=== PATIENT | female | born 1990 | race African-American/Black ===

== ENCOUNTER 2018-08-10 21:25 | Emergency (ER) | payer OTHER ==
[~2018-08-10] VITALS: Ht 160 cm; Wt 54.4 kg
[2018-08-10 22:37] LABS: BILIRUBIN,URINE NEGATIVE (NEG); CLARITY,URINE CLEAR; COLOR,URINE YELLOW; NITRITE,URINE NEGATIVE (NEG); PROTEIN,URINE NEGATIVE (NEG-TRACE)
[2018-08-10 22:44] LABS: RBC,URINE OCC /HPF (0-2)
[2018-08-10 22:45] LABS: BACTERIA,URINE FEW /HPF (0-FEW); SQUAMOUS EPITHELIAL CELL,UR FEW /LPF
[2018-08-10] MEDS ORDERED: CEPH-264 PO (23:04)
--- NOTE | 2018-08-10 23:04 | PHYS DOC ---
Past Medical History Past Medical History: UTI, Other Additional Past Medical Histor: "CHRONIC INFLAMMATION OF CHEST" Past Surgical History: No Surgical History Alcohol Use: None Drug Use: None Adult General Chief Complaint Chief Complaint: PAIN ON URINATION [facility] HPI Patient is a 27 year old female who presents with sharp pain in her lower abdomen and at her urethra after she finishes her urinating stream. Patient states that this morning she saw blood when she wiped. This been going on for 2- 3 days. Patient states. Patient denies nausea, vomiting, fever, back pain. She takes no medications daily has no known drug allergies. Review of Systems Review of Systems Constitutional: Denies fever or chills [] Eyes: Denies change in visual acuity, redness, or eye pain [] HENT: Denies nasal congestion or sore throat [] Respiratory: Denies cough or shortness of breath [] Cardiovascular: No additional information not addressed in HPI [] GI: Denies abdominal pain, nausea, vomiting, bloody stools or diarrhea [] : Dysuria and hematuria [] Musculoskeletal: Denies back pain or joint pain [] All other systems were reviewed and found to be within normal limits, except as documented in this note. Allergies Allergies Allergies Coded Allergies Type Severity Reaction Last Updated Verified No Known Drug Allergies 08/10/18 No Physical Exam Physical Exam Constitutional: Well developed, well nourished, no acute distress, non-toxic appearance. [] HENT: Normocephalic, atraumatic, bilateral external ears normal, oropharynx moist, no oral exudates, nose normal. [] Eyes: PERRLA, EOMI, conjunctiva normal, no discharge. [] Neck: Normal range of motion, no tenderness, supple, no stridor. [] Cardiovascular:Heart rate regular rhythm, no murmur [] Lungs & Thorax: Bilateral breath sounds clear to auscultation [] Abdomen: Bowel sounds normal, soft, no tenderness, no masses, no pulsatile masses. [] Skin: Warm, dry, no erythema, no rash. [] Back: No tenderness, no CVA tenderness. [] Extremities: No tenderness, no cyanosis, no clubbing, ROM intact, no edema. [] Neurologic: Alert and oriented X 3, normal motor function, normal sensory function, no focal deficits noted. [] Psychologic: Affect normal, judgement normal, mood normal. [] Current Patient Data Lab Values Laboratory Tests Test 08/10/18 21:27 08/10/18 22:25 Urine Collection Type Unknown Urine Color Yellow Urine Clarity Clear Urine pH 7.0 Urine Specific [place] >=1.030 Urine Protein Negative mg/dL (NEG-TRACE) Urine Glucose (UA) Negative mg/dL (NEG) Urine Ketones (Stick) Negative mg/dL (NEG) Urine Blood Small (NEG) Urine Nitrite Negative (NEG) Urine Bilirubin Negative (NEG) Urine Urobilinogen Dipstick 1.0 mg/dL (0.2 mg/dL) Urine Leukocyte Esterase Small (NEG) Urine RBC Occ /HPF (0-2) Urine WBC 5-10 /HPF (0-4) Urine Squamous Epithelial Cells Few /LPF Urine Bacteria Few /HPF (0-FEW) Urine Mucus Slight /LPF POC Urine HCG, Qualitative Hcg negative (Negative) EKG EKG [] Radiology/Procedures Radiology/Procedures [] Course & Med Decision Making Course & Med Decision Making Patient is a 27 year old female who presents with sharp pain in her lower abdomen and at her urethra after she finishes her urinating stream. Patient states that this morning she saw blood when she wiped. This been going on for 2- 3 days. Patient states. Patient denies nausea, vomiting, fever, back pain. She takes no medications daily has no known drug allergies. Abdomen is soft and nontender. Afebrile. Patient denies any abnormal vaginal discharge. Patient's urine shows signs of early infection. She'll be put on a antibiotic and follow up with her primary care. Dragon Disclaimer Dragon Disclaimer This electronic medical record was generated, in whole or in part, using a voice recognition dictation system. Departure Departure Impression: Primary Impression: Urinary tract infection Disposition: HOME, SELF-CARE Condition: STABLE Referrals: NO PCP (PCP) Patient Instructions: Urinary Tract Infection Additional Instructions: Follow up with your primary care. Take medications as prescribed. Scripts Cephalexin (KEFLEX) 500 Mg Capsule 1 CAP PO BID, #14 CAP Prov: NGUYỄN RIVERA Susan [employer] C[employer] MERCHANDISER LEAD 08/10/18 Attending Signature Attending Signature I have reviewed the PA/CANOE MAKER's note and plan of care. I was available for consultation as needed during the patient's visit in the emergency department. I agree with the clinical impression, plan, and disposition. Problem Qualifiers Primary Impression: Urinary tract infection Urinary tract infection type: site unspecified Hematuria presence: with hematuria Qualified Codes: N39.0 - Urinary tract infection, site not specified ; R31.9 - Hematuria, unspecified NGUYỄN RIVERA APRN Aug 10, 2018 23:04 MARIE LIN DO Aug 11, 2018 02:19
== END 2018-08-10 23:10 | disposition home or self-care (01) ==
LOC: ER 21:25
DX: N39.0 Urinary tract infection, site not specified (principal); R31.9 Hematuria, unspecified; Z87.440 Personal history of urinary (tract) infections
CPT/HCPCS: 81001; 81025; 87086; 99283

== ENCOUNTER 2019-01-05 11:56 | Emergency (ER) | payer OTHER ==
[~2019-01-05] VITALS: Ht 160 cm; Wt 49.9 kg
[~2019-01-05 11:56] MED LIST: CEPH-264 PO
[2019-01-05 12:28] VITALS: BP 110/73
--- NOTE | 2019-01-05 14:18 | PHYS DOC ---
Past Medical History Past Medical History: UTI, Other Additional Past Medical Histor: "CHRONIC INFLAMMATION OF CHEST" Past Surgical History: No Surgical History Alcohol Use: None Drug Use: None Adult General Chief Complaint Chief Complaint: EARACHE/EAR PAIN HPI HPI 28-year-old female presents to ER via POV with complaints of right ear pain which started on Thursday. Patient denies any other symptoms however does state her hearing is muffled in her right ear. She denies any injury or trauma. She has been using [id number] eardrops for pain as directed on container. He shouldn't denies any dizziness, headache, or nausea and vomiting. Denies smoking hx. Review of Systems Review of Systems Constitutional: Denies fever or chills [] Eyes: Denies change in visual acuity, redness, or eye pain [] HENT: Denies nasal congestion or sore throat. Reports rt ear pain with muffled hearing Respiratory: Denies cough or shortness of breath [] Cardiovascular: No additional information not addressed in HPI [] GI: Denies abdominal pain, nausea, vomiting, bloody stools or diarrhea [] Musculoskeletal: Denies back/neck pain or joint pain [] Integument: Denies rash or skin lesions [] Neurologic: Denies headache, focal weakness or sensory changes. Denies dizziness All other systems were reviewed and found to be within normal limits, except as documented in this note. Allergies Allergies Allergies Coded Allergies Type Severity Reaction Last Updated Verified No Known Drug Allergies 08/10/18 No Physical Exam Physical Exam Constitutional: Well developed, well nourished, no acute distress, non-toxic appearance. [] HENT: Normocephalic, atraumatic, lt ear exam NL- rt ear excessive wax in inner canal unable to visualize TM; bilat. external canal NL; oropharynx moist- no pharyngeal swelling/erythema, no oral exudates, nose normal. [] Eyes: Pupils equal, conjunctiva normal, no discharge. [] Neck: Normal range of motion, no tenderness, supple, no stridor. [] Cardiovascular: Heart rate regular Lungs & Thorax: Resp. equal/nonlabored Skin: Warm, dry, no erythema, no rash. [] Extremities: ROM intact, no edema. [] Neurologic: Alert and oriented X 3, normal motor function, normal sensory function, no focal deficits noted. [] Psychologic: Affect normal, judgement normal, mood normal. [] Current Patient Data Vital Signs Vital Signs Date Time Temp Pulse Resp B/P (MAP) Pulse Ox O2 Delivery O2 Flow Rate FiO2 01/05/19 12:28 98.3 83 16 110/73 (85) 99 Room Air 98.3 EKG EKG [] Radiology/Procedures Radiology/Procedures [] Course & Med Decision Making Course & Med Decision Making Pt was evaluated in the ER for complaints of right earache and muffled hearing. On exam she had excessive earwax in her ear canal which was irrigated and per RN easily removed. Reexam patient had no bulging or perforation at TM or purulence and inner canal. External canal was normal limits. Patient states she is still having some discomfort offered dose of Tylenol or ibuprofen and patient preferred no medications. Patient was advised on avoiding any Q-tip use or insertion of anything into ear and if symptoms persist follow-up advised with ENT and/or primary care physician. Patient was afebrile and in no distress while in the ER. [] Dragon Disclaimer Dragon Disclaimer This electronic medical record was generated, in whole or in part, using a voice recognition dictation system. Departure Departure Impression: Primary Impression: Excessive ear wax Disposition: 01 HOME, SELF-CARE Condition: STABLE Referrals: NO PCP (PCP) Patient Instructions: Otalgia Additional Instructions: You were found to have excessive wax in your right ear- once irrigated the wax was removed and your tympanic membrane was visualized. There was no signs of infection or perforation of the membrane. Ibuprofen and/or tylenol as needed for pain as directed on container. Warm compress to right ear as needed. Avoid insertion of objects into the ear. If symptoms persist follow-up with your doctor or an Ear, Nose and Throat doctor (ENT) for re-evaluation and further care JE SANDRA APRN Jan 05, 2019 14:18
== END 2019-01-05 14:21 | disposition home or self-care (01) ==
LOC: ER 11:56
DX: H61.21 Impacted cerumen, right ear (principal)
CPT/HCPCS: 69209; 99282

== ENCOUNTER 2019-05-06 09:12 | Emergency (ER) | payer OTHER ==
[~2019-05-06] VITALS: Ht 160 cm; Wt 52.2 kg
[2019-05-06 09:27] LABS: BILIRUBIN,URINE NEGATIVE (NEG); CLARITY,URINE CLEAR; COLOR,URINE YELLOW; NITRITE,URINE POSITIVE (NEG); PROTEIN,URINE 30 mg/dL (NEG-TRACE); UROBILINOGEN,URINE 0.2 mg/dL (0.2 mg/dL)
--- NOTE | 2019-05-06 09:28 | PHYS DOC ---
Past Medical History Past Medical History: UTI, Other Additional Past Medical Histor: "CHRONIC INFLAMMATION OF CHEST" (CHARLES ANDRADE APRN) Past Surgical History: No Surgical History (CHARLES ANDRADE APRN) Alcohol Use: None Drug Use: None (CHARLES ANDRADE APRN) Adult General Chief Complaint Chief Complaint: PAIN ON URINATION [facility] Patient is a 28 year old female with no significant medical history who pr esents to the ED today complaining of dysuria that began this morning. Patient denies any fever, nausea, vomiting. Denies any chance she is . Denies any concerns for STDs. (CHARLES ANDRADE APRN) Review of Systems Review of Systems Constitutional: Denies fever or chills [] Eyes: Denies change in visual acuity, redness, or eye pain [] HENT: Denies nasal congestion or sore throat [] Respiratory: Denies cough or shortness of breath [] Cardiovascular: No additional information not addressed in HPI [] GI: Denies abdominal pain, nausea, vomiting, bloody stools or diarrhea [] : Reports dysuria, denies hematuria [] Musculoskeletal: Denies back pain or joint pain [] Integument: Denies rash or skin lesions [] Neurologic: Denies headache, focal weakness or sensory changes [] All other systems were reviewed and found to be within normal limits, except as documented in this note. (CHARLES ANDRADE APRN) Allergies Allergies Allergies Coded Allergies Type Severity Reaction Last Updated Verified No Known Drug Allergies 08/10/18 No (MARIE LIN DO) Physical Exam Physical Exam Constitutional: Well developed, well nourished, no acute distress, non-toxic appearance. [] HENT: Normocephalic, atraumatic, bilateral external ears normal, oropharynx moist, no oral exudates, nose normal. [] Eyes: PERRLA, EOMI, conjunctiva normal, no discharge. [] Neck: Normal range of motion, no tenderness, supple, no stridor. [] Cardiovascular:Heart rate regular rhythm, no murmur [] Lungs & Thorax: Bilateral breath sounds clear to auscultation [] Abdomen: Bowel sounds normal, soft, no tenderness, no masses, no pulsatile masses. [] Skin: Warm, dry, no erythema, no rash. [] Back: No tenderness, no CVA tenderness. [] Extremities: No tenderness, no cyanosis, no clubbing, ROM intact, no edema. [] Neurologic: Alert and oriented X 3, normal motor function, normal sensory function, no focal deficits noted. [] Psychologic: Affect normal, judgement normal, mood normal. [] (CHARLES ANDRADE APRN) Current Patient Data Vital Signs Vital Signs Date Time Temp Pulse Resp B/P (MAP) Pulse Ox O2 Delivery O2 Flow Rate FiO2 05/06/19 09:31 98.4 76 17 110/80 (90) 100 Room Air 98.4 ([employer] [facility]) Lab Values Laboratory Tests Test 05/06/19 09:20 Urine Collection Type Unknown Urine Color Yellow Urine Clarity Clear Urine pH 6.0 Urine Specific [place] 1.020 Urine Protein 30 mg/dL (NEG-TRACE) Urine Glucose (UA) Negative mg/dL (NEG) Urine Ketones (Stick) 40 mg/dL (NEG) Urine Blood Large (NEG) Urine Nitrite Positive (NEG) Urine Bilirubin Negative (NEG) Urine Urobilinogen Dipstick 0.2 mg/dL (0.2 mg/dL) Urine Leukocyte Esterase Large (NEG) Urine RBC Fobs /HPF (0-2) Urine WBC Tntc /HPF (0-4) Urine Squamous Epithelial Cells Mod /LPF Urine Bacteria Mod /HPF (0-FEW) Urine Mucus Mod /LPF ([facility] Lab Values Laboratory Tests Test 05/06/19 09:20 Urine Collection Type Unknown Urine Color Yellow Urine Clarity Clear Urine pH 6.0 Urine Specific [place] 1.020 Urine Protein 30 mg/dL (NEG-TRACE) Urine Glucose (UA) Negative mg/dL (NEG) Urine Ketones (Stick) 40 mg/dL (NEG) Urine Blood Large (NEG) Urine Nitrite Positive (NEG) Urine Bilirubin Negative (NEG) Urine Urobilinogen Dipstick 0.2 mg/dL (0.2 mg/dL) Urine Leukocyte Esterase Large (NEG) Urine RBC Fobs /HPF (0-2) Urine WBC Tntc /HPF (0-4) Urine Squamous Epithelial Cells Mod /LPF Urine Bacteria Mod /HPF (0-FEW) Urine Mucus Mod /LPF (CHARLES ANDRADE JUNIOR BOOKKEEPER) EKG EKG [] (CHARLES ANDRADE APRN) Radiology/Procedures Radiology/Procedures [] (CHARLES ANDRADE APRN) Course & Med Decision Making Course & Med Decision Making Pertinent Labs and Imaging studies reviewed. (See chart for details) This is a 28-year-old female patient presenting to the ED today with dysuria that began this morning. Positive for UTI. Patient was discharged on cephalexin. Follow-up with PCP in one to 2 weeks. OTC pain relievers. Instructed to push fluids (CHARLES ANDRADE APRN) Dragon Disclaimer Dragon Disclaimer This electronic medical record was generated, in whole or in part, using a voice recognition dictation system. (CHARLES ANDRADE APRN) Departure Departure Impression: Primary Impression: Urinary tract infection Disposition: HOME, SELF-CARE Condition: STABLE Referrals: NO PCP (PCP) follow up with your doctor in 2 weeks Patient Instructions: Urinary Tract Infection Additional Instructions: You have urinary tract infection. We put you on antibiotics, ensure you complete them. Take Tylenol/Motrin for pain or fever. Push fluids. We wrote a presc ription for Pyridium. Take it as prescribed. Come back to the ED at any point symptoms worsen. Scripts Cephalexin (CEPHALEXIN) 500 Mg Capsule 1 CAP PO BID, #14 CAP Prov: CHARLES ANDRADE APRN 05/06/19 Phenazopyridine Hcl (PYRIDIUM) 100 Mg Tablet 100 MG PO TID, #9 TAB Prov: CHARLES ANDRADE APRN 05/06/19 Attending Signature Attending Signature I have reviewed the PA/TICKET PRINTER AND TAGGER's note and plan of care. I was available for consultation as needed during the patient's visit in the emergency department. I agree with the clinical impression, plan, and disposition. (MARIE LIN DO) Problem Qualifiers Primary Impression: Urinary tract infection Urinary tract infection type: site unspecified Hematuria presence: without hematuria Qualified Codes: N39.0 - Urinary tract infection, site not specified CHARLES ANDRADE APRN May 06, 2019 09:28 MARIE LIN DO May 06, 2019 17:17
[2019-05-06 09:31] VITALS: BP 110/80
[2019-05-06 09:33] LABS: RBC,URINE FOBS /HPF (0-2)
[2019-05-06 09:34] LABS: BACTERIA,URINE MOD /HPF (0-FEW); SQUAMOUS EPITHELIAL CELL,UR MOD /LPF; WBC,URINE TNTC /HPF (0-4)
[2019-05-06] MEDS ORDERED: PHEN100T82 PO (09:41)
[2019-05-06] MEDS ORDERED: CEPH500C PO (09:41)
== END 2019-05-06 09:48 | disposition home or self-care (01) ==
LOC: ER 09:12
DX: N39.0 Urinary tract infection, site not specified (principal)
CPT/HCPCS: 81001; 99283

== ENCOUNTER 2019-09-01 15:19 | Emergency (ER) | payer OTHER ==
[~2019-09-01] VITALS: Ht 160 cm; Wt 47.6 kg
[~2019-09-01 15:19] MED LIST changes: +CEPH500C PO; +PHEN100T82 PO
[2019-09-01 15:28] VITALS: BP 145/86
[2019-09-01] MEDS ORDERED: NAPR-514 PO (15:54)
[2019-09-01] MEDS ORDERED: CYCL10TA2 PO (15:54)
--- NOTE | 2019-09-01 15:54 | PHYS DOC ---
Past Medical History Past Medical History: No Pertinent History, UTI, Other Additional Past Medical Histor: "CHRONIC INFLAMMATION OF CHEST" Past Surgical History: No Surgical History Alcohol Use: None Drug Use: None Adult General Chief Complaint Chief Complaint: BACK PAIN - NO INJURY HPI HPI Patient is a 28 year old female who presents to the ED today complaining of mild mid upper back pain that began 3 days ago. Patient states the pain is worse when she lays in certain positions. Denies any injury. Denies any numbness or tingling to bilateral upper and lower extremities. She states immobilization relieves the pain. Review of Systems Review of Systems Constitutional: Denies fever or chills [] Musculoskeletal: Mid back pain Integument: Denies rash or skin lesions [] Neurologic: Denies headache, focal weakness or sensory changes [] All other systems were reviewed and found to be within normal limits, except as documented in this note. Allergies Allergies Allergies Coded Allergies Type Severity Reaction Last Updated Verified No Known Drug Allergies 08/10/18 No Physical Exam Physical Exam Constitutional: Well developed, well nourished, no acute distress, non-toxic appearance. [] Neck: Normal range of motion, no tenderness, supple, no stridor. [] Cardiovascular:Heart rate regular rhythm, no murmur [] Skin: Warm, dry, no erythema, no rash. [] Back: No tenderness, no CVA tenderness. [] Extremities: No tenderness, no cyanosis, no clubbing, ROM intact, no edema. [] Neurologic: Alert and oriented X 3, normal motor function, normal sensory function, no focal deficits noted. [] Psychologic: Affect normal, judgement normal, mood normal. [] Current Patient Data Vital Signs Vital Signs Date Time Temp Pulse Resp B/P (MAP) Pulse Ox O2 Delivery O2 Flow Rate FiO2 09/01/19 15:28 98.5 99 16 145/86 (105) 99 Room Air 98.5 EKG EKG [] Radiology/Procedures Radiology/Procedures [] Course & Med Decision Making Course & Med Decision Making Pertinent Labs and Imaging studies reviewed. (See chart for details) This is a 28-year-old female patient presenting to the ED today with upper back pain no known injury. Pain appears musculoskeletal. Heating pad recommended. Cyclobenzaprine and naproxen prescriptions provided. Follow-up with PCP in 1-2 weeks. Dragon Disclaimer Dragon Disclaimer This electronic medical record was generated, in whole or in part, using a voice recognition dictation system. Departure Departure Impression: Primary Impression: Acute upper back pain Disposition: 01 HOME, SELF-CARE Condition: STABLE Referrals: NO PCP (PCP) follow up with your doctor in 1-2 weeks Patient Instructions: Back Pain, Adult, [id number] Additional Instructions: You were evaluated in the emergency room for back pain. Take the prescribed medications as ordered. Apply heat to your back. Follow-up with your doctor in 1-2 weeks. Scripts Cyclobenzaprine Hcl (CYCLOBENZAPRINE HCL) 10 Mg Tablet 1 TAB PO TID, #30 TAB Prov: CHARLES ANDRADE APRN 09/01/19 Naproxen (NAPROXEN) 500 Mg Tablet 1 TAB PO BID for pain for 30 Days, #20 TAB 0 Refills Prov: CHARLES ANDRADE APRN 09/01/19 CHARLES ANDRADE APRN Sep 01, 2019 15:54
== END 2019-09-01 16:01 | disposition home or self-care (01) ==
LOC: ER 15:19
DX: M54.6 Pain in thoracic spine (principal); G89.29 Other chronic pain
CPT/HCPCS: 99283

== ENCOUNTER 2019-09-11 15:22 | Emergency (ER) | payer OTHER ==
[~2019-09-11] VITALS: Ht 162.6 cm; Wt 47.6 kg
[~2019-09-11 15:22] MED LIST changes: +CYCL10TA2 PO; +NAPR-514 PO
[2019-09-11 15:41] LABS: CLARITY,URINE TURBID
[2019-09-11 15:45] VITALS: BP 142/85
[2019-09-11 15:59] LABS: BACTERIA,URINE MANY /HPF (0-FEW); RBC,URINE TNTC /HPF (0-2); SQUAMOUS EPITHELIAL CELL,UR FEW /LPF; WBC,URINE TNTC /HPF (0-4)
[2019-09-11 16:01] LABS: COLOR,URINE RED
--- NOTE | 2019-09-11 16:01 | PHYS DOC ---
Past Medical History Past Medical History: UTI, Other Additional Past Medical Histor: "CHRONIC INFLAMMATION OF CHEST" Past Surgical History: No Surgical History Additional Information: Nonsmoker Alcohol Use: None Drug Use: None Adult General Chief Complaint Chief Complaint: BLOOD IN URINE HPI HPI Patient is a 28 year old female who presents with lower abdominal pain and dysuria. Pt reports she has had these symptoms for past few days and it is similar to her previous UTIs. She now reports seeing blood in her urine. Pt took some Azo without any relieve of pain. Denies any flank pain or constitutional symptoms. Denies . Denies fever/chills. Denies N/V. Denies trauma. Denies rash. Review of Systems Review of Systems Constitutional: Denies fever or chills Eyes: Denies redness or eye pain HENT: Denies nasal congestion or sore throat Respiratory: Denies cough or shortness of breath Cardiovascular: Denies chest pain or palpitations GI: Denies abdominal pain, nausea, or vomiting : Positive dysuria and hematuria Musculoskeletal: Denies back pain or joint pain Integument: Denies rash or skin lesions Neurologic: Denies headache, focal weakness or sensory changes Complete systems were reviewed and found to be within normal limits, except as documented in this note. Current Medications Current Medications Current Medications Medications (Trade) Dose Ordered Sig/Enriqueta Start Time Stop Time Status Last Admin Dose Admin Cephalexin HCl (Keflex) 500 mg 1X ONCE 09/11/19 16:15 09/11/19 16:15 DC 09/11/19 16:14 500 MG Allergies Allergies Allergies Coded Allergies Type Severity Reaction Last Updated Verified No Known Drug Allergies 08/10/18 No Physical Exam Physical Exam Constitutional: Well developed, well nourished, no acute distress, non-toxic appearance HENT: Normocephalic, atraumatic, oropharynx moist Eyes: Conjunctiva normal, no discharge Neck: Normal range of motion, no tenderness, supple Cardiovascular: Heart rate normal, regular rhythm Lungs & Thorax: Bilateral breath sounds clear to auscultation, no wheezing Abdomen: Soft, mild suprapubic tenderness on palpation Skin: Warm, dry, no erythema, no rash Back: No tenderness, no CVA tenderness Extremities: No tenderness, ROM intact, no edema Neurologic: Alert and oriented X 3, no focal deficits noted Psychologic: Affect normal, judgement normal Current Patient Data Vital Signs Vital Signs Date Time Temp Pulse Resp B/P (MAP) Pulse Ox O2 Delivery O2 Flow Rate FiO2 09/11/19 15:45 98.1 100 18 142/85 (104) 100 Room Air 98.1 Lab Values Laboratory Tests Test 09/11/19 15:28 09/11/19 15:32 Urine Collection Type Unknown Urine Color Red Urine Clarity Turbid Urine pH Urine Specific [place] Urine Protein mg/dL (NEG-TRACE) Urine Glucose (UA) mg/dL (NEG) Urine Ketones (Stick) mg/dL (NEG) Urine Blood (NEG) Urine Nitrite (NEG) Urine Bilirubin (NEG) Urine Urobilinogen Dipstick mg/dL (0.2 mg/dL) Urine Leukocyte Esterase (NEG) Urine RBC Tntc /HPF (0-2) Urine WBC Tntc /HPF (0-4) Urine Squamous Epithelial Cells Few /LPF Urine Bacteria Many /HPF (0-FEW) Urine Mucus Marked /LPF POC Urine HCG, Qualitative Hcg negative (Negative) EKG EKG [] Radiology/Procedures Radiology/Procedures [] Course & Med Decision Making Course & Med Decision Making Patient is a 28 year old female who presents with suprapubic abdominal pain and dysuria. History of present illness and physical exam appeared more consistent with acute UTI. UA confirmed infection however significant hematuria noted. Doubt kidney stone. Will hold imaging study and treat with antibiotics. Discuss plan and return precaution with patient in case of worsening of signs and symptoms. Patient stable for discharge with outpatient follow-up with PCP. Discussed findings and plan with patient, who acknowledges understanding and agreement. Dragon Disclaimer Dragon Disclaimer This electronic medical record was generated, in whole or in part, using a voice recognition dictation system. Departure Departure Impression: Primary Impression: UTI (urinary tract infection) Additional Impression: Hematuria Disposition: HOME, SELF-CARE Condition: STABLE Referrals: NO PCP (PCP) Patient Instructions: Hematuria, Adult, Urinary Tract Infection, [id number] Scripts Cephalexin (KEFLEX) 500 Mg Capsule 500 MG PO BID for 7 Days, #14 CAP Prov: MARIE LIN DO 09/11/19 Problem Qualifiers Primary Impression: UTI (urinary tract infection) Urinary tract infection type: acute cystitis Hematuria presence: with hematuria Qualified Codes: N30.01 - Acute cystitis with hematuria Additional Impression: Hematuria Hematuria type: unspecified type Qualified Codes: R31.9 - Hematuria, unspecified MARIE LIN DO Sep 11, 2019 16:01
[2019-09-11] MEDS ORDERED: CEPH-264 PO (16:08)
[2019-09-11] MEDS: CEPHALEXIN 250 MG CAPSULE. PO ONE (16:14)
== END 2019-09-11 16:15 | disposition home or self-care (01) ==
LOC: ER 15:22
DX: N30.01 Acute cystitis with hematuria (principal); R31.9 Hematuria, unspecified; Z87.440 Personal history of urinary (tract) infections
CPT/HCPCS: 81001; 81025; 87086; 99284